=== PATIENT | male | born 1965 | race Caucasian/White ===

== ENCOUNTER 2024-06-04 07:24 | Emergency (ER) | payer OTHER, SELFPAY ==
[2024-06-04] VITALS (7 sets, daily range): BP systolic 120–141; BP diastolic 62–89; BMI 30.5
[2024-06-04 08:07] LABS: % Eosinophils 1.7 % (0-6); % Immature Granulocytes 0.2 % (0-0.5); % Lymphocytes 29.6 % (20.5-51.1); % Monocytes 6.1 % (1.7-9.3); % Neutrophils 61.4 % (42.2-75.2); Absolute Basophils 0.1 10^3/uL (0-0.2); Absolute Eosinophils 0.1 10^3/uL (0-0.7); Absolute Lymphocytes 1.7 10^3/uL (1.2-3.4); Absolute Monocytes 0.4 10^3/uL (0.1-0.6); Absolute Neutrophils 3.6 10^3/uL (1.4-6.5); Hematocrit 47.4 % (39.0-52.0); Mean Corp Hgb Conc. 35.9 g/dL (33.0-37.0); Mean Corpuscular Hgb 29.9 pg (27.0-31.0); Mean Corpuscular Volume 83.3 fL (80.0-94.0); Nucleated Red Blood Cells % 0 % (-); Platelet Count 198 10^3/uL (130-400); Red Blood Cell Count 5.69 10^6/uL (4.70-6.10); Red Cell Dist. Width 13.3 % (11.5-14.5); White Blood Cell Count 5.9 10^3/uL (4.8-10.8)
[2024-06-04 08:09] LABS: ALT (SGPT) 30 U/L (0-50); AST (SGOT) 30 U/L (17-59); Albumin 4.7 g/dl (3.5-5.0); Alkaline Phosphatase 93 U/L (38-126); Blood Urea Nitrogen 18 mg/dl (9-20); Calcium 9.9 mg/dl (8.4-10.2); Carbon Dioxide 22 mmol/L (22-30); Chloride 106 mmol/L (98-107); Estimated Creatinine Clearance 76 ml/min; Glucose 112 mg/dl (70-99); Potassium 4.3 mmol/L (3.5-5.1); Sodium 137 mmol/L (135-145); Total Bilirubin 0.9 mg/dl (0.2-1.3); Total Protein 7.5 g/dl (6.3-8.2); eGFR > 60.00
[2024-06-04 08:19] LABS: Troponin I 0.021 ng/ml
--- NOTE | 2024-06-04 08:19 | ED.GENMED ---
History of Present Illness
<Washington Velazco PA-C - Last Filed: 06/04/24 12:17>
General
Chief Complaint: Cardiac Symptoms
Source: patient
Exam Limitations: none
Time Seen by Provider: 06/04/24 07:40
History of Present Illness
History of Present Illness:
59-year-old male otherwise healthy presents with sensation of not feeling well noticeable over the past 2 weeks. He notes that his right arm has felt heavy at times especially after walking on a treadmill. He states he has been getting episodes of
sweats intermittently today this happened while sitting watching TV. There is no associated chest pain. No shortness of breath. He notes that he has been having increased thirst recently but denies any increased urination. No fevers or rash. No
joint aches or headache. No known tick exposures. No other complaints at this time.
Past History
<Washington Velazco PA-C - Last Filed: 06/04/24 12:17>
Past History
ED Past Medical History: Other (kidney stone)
ED Past Surgical History: Tonsilectomy
Social History
Tobacco: Non-smoker
Personal:
Living: with family
Employment: Employed
Family History
Family History: Negative Early CAD or CAD
Phy Exam
<ENRRIQUE Nava Last Filed: 06/04/24 12:17>
Physical Exam
Physical Exam:
General: Well-appearing male oxygen no acute respiratory distress
HEENT normocephalic atraumatic heart: Regular rate and rhythm no murmurs
Lungs: Clear no wheeze
Extremities: No cyanosis or edema
Skin is dry warm no rash
Course
<ENRRIQUE Nava Last Filed: 06/04/24 12:17>
Orders/Labs/Results
Orders:
Orders
06/04/24 07:32
EKG [Electrocardiogram (*1)] Urgent
Reason for Study: Palpitations
EKG- Treatment ONCE
06/04/24 07:43
Complete Blood Count/With Diff Urgent
Comprehensive Metabolic Panel Urgent
Creatine Phosphokinase Urgent
Comment: ADD ON
Lyme Progressive Urgent
Comment: ADD ON
TSH Reflex To Free T4 Urgent
Comment: ADD ON
Troponin I Urgent
06/04/24 08:17
Add On- LAB Urgent
Tests Added?: tsh reflex to t4
06/04/24 08:22
Add On- LAB Urgent
Tests Added?: lyme progressive
06/04/24 10:36
Troponin I Urgent
06/04/24 10:43
Add On- LAB Urgent
Tests Added?: cpk
06/04/24 11:09
COVID-19 Antigen Urgent
Source: Nasal Swab
Abnormal Lab Results
06/04/24
07:43
MPV 11.0 H fL
(7.4-10.4)
Glucose 112 H mg/dl
(70-99)
06/04/24 07:43
06/04/24 07:43
Vital Signs
Initial and Last Documented VS:
Initial Vital Signs
Pulse Resp Pulse Ox
75 18 100
06/04/24 07:34 06/04/24 07:34 06/04/24 07:34
Last Documented Vital Signs
Temp Pulse Resp BP Pulse Ox
97.6 F 63 12 122/77 97
06/04/24 07:35 06/04/24 12:00 06/04/24 12:00 06/04/24 12:00 06/04/24 12:00
<Whit Nj MD - Last Filed: 06/04/24 09:13>
Orders/Labs/Results
Orders:
Orders
06/04/24 07:32
EKG [Electrocardiogram (*1)] Urgent
Reason for Study: Palpitations
EKG- Treatment ONCE
06/04/24 07:43
Complete Blood Count/With Diff Urgent
Comprehensive Metabolic Panel Urgent
Creatine Phosphokinase Urgent
Comment: ADD ON
Lyme Progressive Urgent
Comment: ADD ON
TSH Reflex To Free T4 Urgent
Comment: ADD ON
Troponin I Urgent
06/04/24 08:17
Add On- LAB Urgent
Tests Added?: tsh reflex to t4
06/04/24 08:22
Add On- LAB Urgent
Tests Added?: lyme progressive
06/04/24 10:36
Troponin I Urgent
06/04/24 10:43
Add On- LAB Urgent
Tests Added?: cpk
06/04/24 11:09
COVID-19 Antigen Urgent
Source: Nasal Swab
Abnormal Lab Results
06/04/24
07:43
MPV 11.0 H fL
(7.4-10.4)
Glucose 112 H mg/dl
(70-99)
06/04/24 07:43
06/04/24 07:43
Vital Signs
Initial and Last Documented VS:
Initial Vital Signs
Pulse Resp Pulse Ox
75 18 100
06/04/24 07:34 06/04/24 07:34 06/04/24 07:34
Last Documented Vital Signs
Temp Pulse Resp BP Pulse Ox
97.6 F 63 12 122/77 97
06/04/24 07:35 06/04/24 12:00 06/04/24 12:00 06/04/24 12:00 06/04/24 12:00
<Washington Velazco PA-C - Last Filed: 08/14/24 12:17>
MDM/Problems Addressed
Differential Diagnosis Includes:
Sensation of not feeling well with diaphoresis and right arm heaviness. Patient denies chest pain but consider ACS, electrolyte abnormality, diabetic presentation
Patient nontoxic on initial exam. EKG shows sinus rhythm without ischemic changes. Review of information engineer shows occasional PVCs
Check labs. Troponin pending. Will add thyroid studies and lyme titer as well
<Washington Velazco PA-C - Last Filed: 06/04/24 12:17>
*Critical Care Note
Total Time (30-74mins, 75-104mins- exclusive of procedures): Not Applicable
<Washington Velazco PA-C - Last Filed: 06/04/24 12:17>
Update Note
Update Note:
Initial troponin 0.021 and repeat troponin undetectable. Patient remains asymptomatic and nontoxic upon reassessment. Discussed with emergency room attending who saw the patient as well. No indication for ACS at this time. Vital signs remained
stable. Admission not indicated will discharge with cardiology follow-up using the chest pain hotline
ED Attending Note
<Washington Velazco PA-C - Last Filed: 06/04/24 12:17>
-
Portions of this chart may have been created with voice recognition software.� Occasional wrong word or��sound alike� substitutions may have occurred due to the inherent limitations of voice recognition software.
<Whit Nj MD - Last Filed: 06/04/24 09:13>
ED Attending Note
Patient seen and examined by attending physician: Yes
I performed the substantive portion of visit, reviewed & personally made and approve the management plan that is documented in note by myself or TIFFANIE.: Yes
ED Attending Note:
59-year-old man presenting to the emergency department with diaphoresis and arm heaviness. Patient states for the past few weeks has been noticing increased diaphoresis when working out after being on the treadmill. At rest she was having no
symptoms up until today. At 6 AM he was sitting he became diaphoretic felt off and had some heaviness on his right arm. Not have any chest pain. No shortness of breath. No leg swelling, recent travel, history of malignancy or blood clot. Per
chart review he did have a stress test a few years ago which was normal. He has not followed up with a director metabolism since then. No nausea or vomiting. He does feel as if he is back to baseline currently. On exam he is resting comfortably. He
does have regular rate and rhythm. 2+ distal pulses. No lower extremity edema or tenderness. Concern for ACS versus NSTEMI. History and exam not consistent with PE or dissection. Will check blood work EKG. He will need delta troponin. Dispo
pending blood work and reassessment
Discharge Plan
Departure
Patient Disposition: Home (Routine Discharge)
Date of Disposition: 06/04/24
Time of Disposition: 12:16
Patient with high blood pressure during this ER visit?: No
Discharge Problem:
Chest pain
Instructions: Chest Pain DCA Follow Up
Prescriptions:
No Action
hydrocodone-acetaminophen 1 TABLET tablet
1 - 2 tab PO Q4HPRN PRN (Reason: moderate to severe pain) Qty: 20 0RF
Referrals:
Lashaun Rosales MD [Family Provider] -
Activity Restrictions/Additional Instructions:
Please return here for any worsening symptoms otherwise follow-up with cardiology
Interventions
Interventions:
*Risk Screen - Suicide Last Done: 06/04/24 07:38
*General Assessment Last Done: 06/04/24 07:38
*Neglect/Abuse Screening Last Done: 06/04/24 07:38
ED- Fall Risk Assessment Last Done: 06/04/24 07:39
*ED COVID-19 Vaccine History Last Done: 06/04/24 07:38
ED- Pulmonary Assessment Last Done: 06/04/24 07:39
ED- Cardiac Assessment Last Done: 06/04/24 07:40
Discharge Date and Time
Print Language: BERMUDIAN
[2024-06-04 09:48] LABS: TSH Reflex To Free T4 1.34 uIU/ml (0.47-4.68)
[2024-06-04 11:10] LABS: Troponin I < 0.012 ng/ml
[2024-06-04 11:29] LABS: COVID-19 Antigen Negative (Negative)
[2024-06-04 15:30] LABS: Creatine Phosphokinase 89 U/L (55-170)
[2024-06-05 14:36] LABS: Lyme Antibody Screen, EIA Negative (Negative)
== END 2024-06-04 12:49 | disposition home or self-care (01) ==
LOC: EMR 07:24
PROVIDERS: Emergency Medicine; Physician Assistant; EMERGENCY PHYSICIAN Student in an Organized Health Care Education/Training Program; FAMILY PHYSICIAN Internal Medicine
DX: R07.89 Other chest pain (principal); Z87.442 Personal history of urinary calculi
CPT/HCPCS: 99283; 80053; 82550; 84443; 84484; 85025; 86618; 87811; 93005

== ENCOUNTER → 2024-06-13 12:35 | Outpatient (REF) | payer OTHER, SELFPAY | LOC: RCS 12:35 | PROVIDERS: ATTENDING PHYSICIAN Internal Medicine Cardiovascular Disease; FAMILY PHYSICIAN Internal Medicine | DX: R11.0 Nausea (principal); R07.89 Other chest pain; R03.0 Elevated blood-pressure reading, without diagnosis of hypertension; R61 Generalized hyperhidrosis; R42 Dizziness and giddiness | CPT/HCPCS: 93017 ==

== ENCOUNTER → 2024-06-19 12:47 | Outpatient (REF) | payer OTHER, SELFPAY | LOC: RCS 12:47 | PROVIDERS: ATTENDING PHYSICIAN Internal Medicine Cardiovascular Disease; FAMILY PHYSICIAN Internal Medicine | DX: R07.89 Other chest pain (principal); R11.0 Nausea; R03.0 Elevated blood-pressure reading, without diagnosis of hypertension; R61 Generalized hyperhidrosis; R42 Dizziness and giddiness | CPT/HCPCS: 93306 ==